=== PATIENT | female | born 1950 | race Caucasian/White ===

== ENCOUNTER → 2020-12-16 09:42 | Outpatient (BNVA) | payer MEDICARE, SELFPAY | PROVIDERS: PCP Internal Medicine; Visit Provider Anesthesiology | DX: M47.27 Other spondylosis with radiculopathy, lumbosacral region (principal); M51.36 Other intervertebral disc degeneration, lumbar region; G89.4 Chronic pain syndrome; R10.11 Right upper quadrant pain; Z86.73 Personal history of transient ischemic attack (TIA), and cerebral infarction without residual deficits; Z88.6 Allergy status to analgesic agent | CPT/HCPCS: 99202 ==

== ENCOUNTER 2021-02-04 06:05 | Outpatient (REF) | payer MEDICARE, SELFPAY ==
--- NOTE | ~2021-02-04 | FL_ITS ---
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 TECHNIQUE: Fluoroscopy performed by Dr. Pablo Montiel. Fluoroscopy time: 0.2 minutes DAP: 1.19 Gycm2 Images: 2 FINDINGS: There is a spinal needle overlying the outer right L5 neural foramen. There is contrast seen in the respective nerve sheaths. Some early transforaminal epidural extension is suggested. No visible vascular communication. There are degenerative changes spine with variable disc narrowing and vertebral spurring. Vascular atherosclerotic calcifications are present. FL/FL guidance in treatment room IMPRESSION: Fluoroscopy for pain management procedures.
== END 2021-02-04 06:06 | disposition home or self-care (01) ==
LOC: HO.RADIR 06:05
PROVIDERS: Visit Provider Anesthesiology
DX: M47.27 Other spondylosis with radiculopathy, lumbosacral region (principal); M51.36 Other intervertebral disc degeneration, lumbar region; G89.4 Chronic pain syndrome; R10.9 Unspecified abdominal pain
CPT/HCPCS: 64483; J1100; J3300; Q9967

== ENCOUNTER → 2021-02-12 14:12 | Outpatient (BNVA) | payer MEDICARE, SELFPAY | PROVIDERS: PCP Internal Medicine; Visit Provider Anesthesiology | DX: M47.27 Other spondylosis with radiculopathy, lumbosacral region (principal); M51.36 Other intervertebral disc degeneration, lumbar region; G89.4 Chronic pain syndrome; R10.9 Unspecified abdominal pain | CPT/HCPCS: Q3014 ==

== ENCOUNTER → 2021-02-19 08:11 | Outpatient (BNVA) | payer MEDICARE, SELFPAY | PROVIDERS: PCP Internal Medicine; Visit Provider Anesthesiology | DX: M47.27 Other spondylosis with radiculopathy, lumbosacral region (principal); M51.36 Other intervertebral disc degeneration, lumbar region; G89.4 Chronic pain syndrome; R10.9 Unspecified abdominal pain | CPT/HCPCS: 99212 ==

== ENCOUNTER 2021-04-08 06:08 | Outpatient (REF) | payer MEDICARE, SELFPAY ==
--- NOTE | ~2021-04-08 | FL_ITS ---
EXAMINATION: XR FLUOROSCOPY WITH IMAGES CLINICAL INFORMATION: Pain. COMPARISON: None. TECHNIQUE: Fluoroscopy performed by Olesya Suarez. Fluoroscopy time: 0.5 minutes DAP: 10.0 Gycm2 Images: 4 FINDINGS: There is a needle positioned adjacent and superior to the right L5, L4 and L3 pedicles for pain management. Visualized bones are grossly unremarkable.. FL/FL guidance in treatment room IMPRESSION: Fluoroscopy was provided to referring physician for pain management.
== END 2021-04-08 06:09 | disposition home or self-care (01) ==
LOC: HO.RADIR 06:08
PROVIDERS: Visit Provider Anesthesiology
DX: M47.27 Other spondylosis with radiculopathy, lumbosacral region (principal); M51.36 Other intervertebral disc degeneration, lumbar region
CPT/HCPCS: 64493; 64494; 64495; J3300; Q9967

== ENCOUNTER → 2021-04-16 08:06 | Outpatient (BNVA) | payer MEDICARE, SELFPAY | PROVIDERS: PCP Internal Medicine; Visit Provider Anesthesiology | DX: M51.36 Other intervertebral disc degeneration, lumbar region (principal); R10.9 Unspecified abdominal pain; G89.29 Other chronic pain | CPT/HCPCS: Q3014 ==

== ENCOUNTER 2022-05-01 09:00 | Outpatient (RCR) | payer MEDICARE, SELFPAY | END 2022-05-01 16:00 | disposition home or self-care (01) | LOC: HO.WCC 09:00 | PROVIDERS: PCP Internal Medicine; Visit Provider Physician Assistant | DX: S81.812A Laceration without foreign body, left lower leg, initial encounter (principal); I73.9 Peripheral vascular disease, unspecified; Z72.0 Tobacco use; I48.91 Unspecified atrial fibrillation; Z79.01 Long term (current) use of anticoagulants | CPT/HCPCS: 99212 ==

== ENCOUNTER 2022-05-15 09:00 | Outpatient (RCR) | payer MEDICARE, SELFPAY | END 2022-05-18 14:50 | disposition home or self-care (01) | LOC: HO.WCC 09:00 | PROVIDERS: PCP Internal Medicine; Visit Provider Physician Assistant | DX: S81.812A Laceration without foreign body, left lower leg, initial encounter (principal); I73.9 Peripheral vascular disease, unspecified; Z72.0 Tobacco use | CPT/HCPCS: 99212 ==